=== PATIENT | male | born 1955 | race Two or more races ===

== ENCOUNTER 2024-10-30 10:27 | Inpatient (IN) | payer OTHER ==
[2024-10-30 11:23] VITALS: BMI 16.3
[2024-10-30] MEDS ORDERED: IBUPROFEN 600 MG TABLET (FP) PO PRN (12:32)
[2024-10-30] MEDS ORDERED: LOPERAMIDE HCL 2 MG CAPSULE PO PRN (12:32)
[2024-10-30] MEDS ORDERED: MAGNESIUM HYDROX 2400MG/30ML ORAL SUSPENSION 30 ML CUP PO PRN (12:32)
[2024-10-30] MEDS ORDERED: POLYETHYLENE GLYCOL (HEALTHYLAX) 3350 17 GM PACKET PO PRN (12:32)
[2024-10-30] MEDS ORDERED: ONDANSETRON *ODT* 4 MG TABLET SL PRN (12:32)
[2024-10-30] MEDS ORDERED: BISMUTH SUBSALICYLATE 262 MG/15 ML BTL PO PRN (12:32)
[2024-10-30] MEDS ORDERED: METHOCARBAMOL 500 MG TABLET PO PRN (12:32)
[2024-10-30] MEDS ORDERED: MAG HYDROX/AL HYDROX/SIMETH 30 ML UNIT-DOSE CUP PO PRN (12:32)
[2024-10-30] MEDS ORDERED: guaiFENesin 600 MG TABLET.ER (FP) PO PRN (12:32)
[2024-10-30] MEDS ORDERED: BENZOCAINE/MENTHOL (CHLORASEPTIC ) LOZENGE MM PRN (12:32)
[2024-10-30] MEDS ORDERED: BENZONATATE 200 MG CAPSULE PO PRN (12:32)
[2024-10-30] MEDS ORDERED: NALOXONE (NARCAN) HCL 4 MG/0.1 ML SPRAY NS PRN (12:32)
[2024-10-30] MEDS ORDERED: DICYCLOMINE HCL 10 MG CAPSULE PO PRN (12:32)
[2024-10-30] MEDS ORDERED: IBUPROFEN 400 MG TABLET (FP) PO PRN (12:32)
[2024-10-30] MEDS ORDERED: ACETAMINOPHEN 325 MG TABLET (FP) PO PRN (12:32)
[2024-10-30] MEDS ORDERED: PRENATAL VITAMINS W/ FOLIC ACID TABLET (FP) PO ONE (13:42)
[2024-10-30] MEDS: PRENATAL VITAMINS W/ FOLIC ACID TABLET (FP) PO SCH (13:44)
[2024-10-30] MEDS ORDERED: cloNIDine HCL 0.1 MG TABLET ONE (13:45)
[2024-10-30] MEDS: cloNIDine HCL 0.1 MG TABLET PO SCH (13:46)
[2024-10-30] MEDS: hydrOXYzine PAMOATE 25 MG CAPSULE (FP) PO PRN (17:45)
[2024-10-30] MEDS: amLODIPine BESYLATE 10 MG TABLET (FP) PO ONE (22:23)
[2024-10-30] MEDS: THIAMINE 100 MG TABLET PO SCH (22:23)
[2024-10-30] MEDS: MELATONIN 5 MG TABLETS PO SCH (22:23)
[2024-10-30] MEDS: diazePAM 5 MG TABLET PO ONE (22:24)
[2024-10-30] MEDS: diazePAM 5 MG TABLET PO SCH (23:28)
[2024-10-31] MEDS ORDERED: methaDONE HCL 10 MG TABLET PO SCH (08:30)
[2024-10-31] MEDS: methaDONE 40 MG, methaDONE 10 MG PO SCH (08:54)
[2024-10-31] MEDS ORDERED: methaDONE HCL 10 MG TABLET PO ONE (10:00)
[2024-10-31 11:04] LABS: HEMATOCRIT 43.1 % (40.1-51.0); HEMOGLOBIN 14.1 g/dL (13.7-17.5); MCHC 32.7 g/dl (32.3-36.5); MEAN CELL VOLUME 94.9 fl (79.0-92.2); PLATELET COUNT 286 x10^3/uL (163-337); RDW 13.7 % (12.2-16.4)
[2024-10-31 11:09] LABS: POTASSIUM 4.2 mmol/L (3.5-5.1)
[2024-10-31 11:17] LABS: BLOOD UREA NITROGEN 26.1 mg/dL (7-18)
[2024-10-31 11:19] LABS: BILIRUBIN,TOTAL 0.3 mg/dL (0.2-1); TOT PROT 7.6 g/dl (6.4-8.2)
[2024-10-31 11:21] LABS: CREATININE 1.5 mg/dL (0.55-1.3)
[2024-11-01] MEDS ORDERED: cloNIDine HCL 0.1 MG TABLET PO PRN
[2024-11-01] MEDS: diazePAM 5 MG TABLET PO SCH (05:33)
[2024-11-02] MEDS: diazePAM 5 MG TABLET PO SCH (05:50)
[2024-11-02] MEDS ORDERED: methaDONE HCL 10 MG TABLET PO ONE (10:00)
[2024-11-02] MEDS: amLODIPine BESYLATE 5 MG TABLET (FP) PO SCH (17:11)
[2024-11-02] MEDS: diazePAM 5 MG TABLET PO PRN (21:39)
[2024-11-03] MEDS: diazePAM 5 MG TABLET PO ONE (05:33)
[2024-11-03 09:40] VITALS: BP 168/85; PULSE 87; RESP 18; TEMP 98.2
[2024-11-04] MEDS ORDERED: methaDONE HCL 10 MG TABLET PO ONE (10:00)
== END 2024-11-03 12:30 | disposition home or self-care (01) | DRG 897 ==
LOC: YASAS 10:27 → Y6N 13:55
PROVIDERS: ADMIT Allergy & Immunology; ATTEND Family Medicine Addiction Medicine
PROC: HZ2ZZZZ Detoxification Services for Substance Abuse Treatment (ICD-10-PCS; principal; 2024-10-30)
DX: F11.23 Opioid dependence with withdrawal (principal); F14.20 Cocaine dependence, uncomplicated; F10.230 Alcohol dependence with withdrawal, uncomplicated; F12.20 Cannabis dependence, uncomplicated; F17.210 Nicotine dependence, cigarettes, uncomplicated; F19.24 Other psychoactive substance dependence with psychoactive substance-induced mood disorder; G47.00 Insomnia, unspecified; I10 Essential (primary) hypertension; L30.9 Dermatitis, unspecified
CPT/HCPCS: 36415; 80053; 80305; 80307; 85027; 86780; 87811; 93005; 93010

== ENCOUNTER 2024-11-03 12:48 | Inpatient (IN) | payer OTHER ==
[2024-11-03] MEDS ORDERED: LOPERAMIDE HCL 2 MG CAPSULE PO PRN (15:03)
[2024-11-03] MEDS ORDERED: IBUPROFEN 400 MG TABLET (FP) PO PRN (15:03)
[2024-11-03] MEDS ORDERED: MAG HYDROX/AL HYDROX/SIMETH 30 ML UNIT-DOSE CUP PO PRN (15:03)
[2024-11-03] MEDS ORDERED: NICOTINE POLACRILEX 4 MG LOZENGE BC PRN (15:03)
[2024-11-03] MEDS ORDERED: BENZONATATE 200 MG CAPSULE PO PRN (15:03)
[2024-11-03] MEDS ORDERED: BENZOCAINE/MENTHOL (CHLORASEPTIC ) LOZENGE MM PRN (15:03)
[2024-11-03] MEDS ORDERED: MAGNESIUM HYDROX 2400MG/30ML ORAL SUSPENSION 30 ML CUP PO PRN (15:03)
[2024-11-03] MEDS ORDERED: NALOXONE (NARCAN) HCL 4 MG/0.1 ML SPRAY NS PRN (15:03)
[2024-11-03] MEDS ORDERED: guaiFENesin 600 MG TABLET.ER (FP) PO PRN (15:03)
[2024-11-03] MEDS ORDERED: NICOTINE POLACRILEX 4 MG GUM BUC PRN (15:03)
[2024-11-03] MEDS ORDERED: POLYETHYLENE GLYCOL (HEALTHYLAX) 3350 17 GM PACKET PO PRN (15:03)
[2024-11-03] MEDS ORDERED: NALOXONE HCL 0.4 MG/ML VIAL IVPUSH PRN (15:03)
[2024-11-03] MEDS: ACETAMINOPHEN 325 MG TABLET (FP) PO PRN (18:40)
[2024-11-03] MEDS: MELATONIN 5 MG TABLETS PO SCH (21:11)
[2024-11-03] MEDS: THIAMINE 100 MG TABLET PO SCH (21:11)
[2024-11-04] MEDS: hydrOXYzine PAMOATE 25 MG CAPSULE (FP) PO PRN (05:36)
[2024-11-04] MEDS ORDERED: METHADONE HCL PO SCH (10:00)
[2024-11-04] MEDS: NICOTINE 14 MG/24 HOURS TOPICAL PATCH TD SCH (10:06)
[2024-11-04] MEDS: methaDONE 40 MG, methaDONE 10 MG PO SCH (10:06)
[2024-11-04] MEDS: PRENATAL VITAMINS W/ FOLIC ACID TABLET (FP) PO SCH (10:08)
[2024-11-04] MEDS: amLODIPine BESYLATE 5 MG TABLET (FP) PO SCH (10:08)
[2024-11-05] MEDS ORDERED: methaDONE HCL 40 MG DISPERSABLE TABLET PO ONE (06:00)
[2024-11-05] MEDS ORDERED: ONDANSETRON *ODT* 4 MG TABLET SL PRN (12:43)
[2024-11-05] MEDS ORDERED: DICYCLOMINE HCL 10 MG CAPSULE PO PRN (12:43)
[2024-11-05] MEDS ORDERED: BISMUTH SUBSALICYLATE 524 MG/30 ML PO PRN (12:43)
[2024-11-05] MEDS ORDERED: METHOCARBAMOL 500 MG TABLET PO PRN (12:43)
[2024-11-06] MEDS: methaDONE HCL 40 MG DISPERSABLE TABLET PO ONE (05:57)
[2024-11-06 14:36] LABS: POTASSIUM 4.7 mmol/L (3.5-5.1)
[2024-11-06 14:44] LABS: ALBUMIN 3.7 g/dl (3.4-5.0); CALCIUM 9.8 mg/dL (8.5-10.1)
[2024-11-06 14:45] LABS: BLOOD UREA NITROGEN 24.6 mg/dL (7-18)
[2024-11-06 14:48] LABS: CREATININE 1.1 mg/dL (0.55-1.3)
[2024-11-06 14:49] LABS: BILIRUBIN,TOTAL 0.7 mg/dL (0.2-1)
[2024-11-07] MEDS ORDERED: methaDONE HCL 10 MG TABLET PO ONE (06:00)
[2024-11-08] MEDS: methaDONE HCL 10 MG TABLET PO ONE (05:31)
[2024-11-09] MEDS ORDERED: methaDONE HCL 10 MG TABLET PO SCH (06:00)
[2024-11-09] MEDS ORDERED: methaDONE HCL 10 MG TABLET PO ONE (06:00)
[2024-11-10] MEDS: methaDONE HCL 10 MG TABLET PO ONE (06:00)
[2024-11-10] MEDS: amLODIPine BESYLATE 2.5 MG TABLET (FP) PO SCH (14:56)
[2024-11-11] MEDS ORDERED: methaDONE HCL 10 MG TABLET PO ONE (06:00)
[2024-11-11] MEDS: IBUPROFEN 600 MG TABLET (FP) PO PRN (10:19)
[2024-11-11] MEDS: amLODIPine BESYLATE 2.5 MG TABLET (FP) PO SCH (10:19)
[2024-11-11] MEDS: LOSARTAN POTASSIUM 50 MG TABLET PO SCH (12:05)
[2024-11-11] MEDS: cloNIDine HCL 0.1 MG TABLET PO SCH (21:16)
[2024-11-12] MEDS: methaDONE HCL 10 MG TABLET PO ONE (06:02)
[2024-11-15] MEDS ORDERED: NALOXONE HCL 0.4 MG/ML VIAL IVPUSH PRN (11:11)
[2024-11-15] MEDS ORDERED: LOPERAMIDE HCL 2 MG CAPSULE PO PRN (11:11)
[2024-11-15] MEDS ORDERED: guaiFENesin 600 MG TABLET.ER (FP) PO PRN (11:11)
[2024-11-15] MEDS ORDERED: IBUPROFEN 400 MG TABLET (FP) PO PRN (11:11)
[2024-11-15] MEDS ORDERED: BENZOCAINE/MENTHOL (CHLORASEPTIC ) LOZENGE MM PRN (11:11)
[2024-11-15] MEDS ORDERED: MAGNESIUM HYDROX 2400MG/30ML ORAL SUSPENSION 30 ML CUP PO PRN (11:11)
[2024-11-15] MEDS ORDERED: ACETAMINOPHEN 325 MG TABLET (FP) PO PRN (11:11)
[2024-11-15] MEDS ORDERED: BENZONATATE 200 MG CAPSULE PO PRN (11:11)
[2024-11-15] MEDS ORDERED: NALOXONE (NARCAN) HCL 4 MG/0.1 ML SPRAY NS PRN (11:11)
[2024-11-15] MEDS ORDERED: NICOTINE POLACRILEX 2 MG GUM BUC PRN (11:11)
[2024-11-15] MEDS ORDERED: NICOTINE POLACRILEX 2 MG LOZENGE BC PRN (11:11)
[2024-11-15] MEDS ORDERED: MAG HYDROX/AL HYDROX/SIMETH 30 ML UNIT-DOSE CUP PO PRN (11:11)
[2024-11-15] MEDS ORDERED: POLYETHYLENE GLYCOL (HEALTHYLAX) 3350 17 GM PACKET PO PRN (11:11)
[2024-11-15] MEDS: THIAMINE 100 MG TABLET PO SCH (21:26)
[2024-11-15] MEDS: MELATONIN 5 MG TABLETS PO SCH (21:26)
[2024-11-15] MEDS: IBUPROFEN 600 MG TABLET (FP) PO PRN (21:27)
[2024-11-15] MEDS: hydrOXYzine PAMOATE 25 MG CAPSULE (FP) PO PRN (21:27)
[2024-11-16 05:42] VITALS: PULSE 74; RESP 16; TEMP 97.8
[2024-11-16 06:16] VITALS: BP 138/99
[2024-11-16] MEDS ORDERED: PRENATAL VITAMINS W/ FOLIC ACID TABLET (FP) PO SCH (10:00)
== END 2024-11-16 06:32 | disposition home or self-care (01) | DRG 895 ==
LOC: YASAS 12:48 → Y3W 12:49
PROVIDERS: ADMIT Psychiatry & Neurology Pain Medicine; ATTEND Psychiatry & Neurology Pain Medicine
PROC: HZ42ZZZ Group Counseling for Substance Abuse Treatment, Cognitive-Behavioral (ICD-10-PCS; principal; 2024-11-03)
DX: F11.20 Opioid dependence, uncomplicated (principal); F14.20 Cocaine dependence, uncomplicated; F10.20 Alcohol dependence, uncomplicated; F12.20 Cannabis dependence, uncomplicated; F17.210 Nicotine dependence, cigarettes, uncomplicated; F19.24 Other psychoactive substance dependence with psychoactive substance-induced mood disorder; I10 Essential (primary) hypertension
CPT/HCPCS: 36415; 80053